=== PATIENT | female | born 1970 | race Two or more races ===

== ENCOUNTER 2020-05-05 19:57 | Emergency (ER) | payer OTHER, SELFPAY ==
--- NOTE | ~2020-05-05 | CT_ITS ---
EXAMINATION: CTA chest PE protocol DATE: 05/05/2020 21:05 INDICATION: Chest pain and shortness of breath TECHNIQUE: Computed tomography angiography (CTA) of the chest was performed with 100 mL Omnipaque-350 intravenous contrast timed to evaluate the pulmonary arteries. Coronal maximum intensity projection 3D-reconstructions were created by the technologist. Automated exposure control and iterative reconst ruction technique were employed. Exam dose: 844.66 mGy-cm total exam DLP. COMPARISON: 07/19/2019 CT pulmonary scan FINDINGS: There is diagnostic contrast enhancement of the pulmonary arteries and no evidence of pulmo nary embolism. There is minimal focal patchy groundglass infiltrate in the anteromedial left upper lobe and minimal discoid atelectasis at the lingula and base of the right lower lobe. No pulmonary mass lesion is evident. No hilar or mediastinal mass lesion or lymphadenopathy. No thoracic aortic aneurysm or dissection. Normal heart size. No pericardial or pleural effusion. Status post cholecystectomy Anterior fusion at T10-11 vertebral bodies. IMPRESSION: No evidence of pulmonary embolism Minimal focal infiltrate in the anteromedial left upper lobe Minimal discoid atelectasis or scarring at the lingula and base of the right lower lobe Reviewed, dictated and finalized at [facility]. Reviewed, dictated and finalized at [facility]. IVING DOCK CHECKER IMPRESSION: No evidence of pulmonary embolism Minimal focal infiltrate in the anteromedial left upper lobe Minimal discoid atelectasis or scarring at the lingula and base of the right lo wer lobe
[2020-05-05 20:02] VITALS: BP 163/99; PULSE 90; RESP 18; TEMP 36.6; O2SAT 96
--- NOTE | 2020-05-05 20:21 | ECG_ITS ---
Measurements Intervals [place] Rate: 90 P: 50 OK: 168 QRS: -26 QRSD: 73 T: 23 QT: 357 QTc: 437 Interpretive Statements SINUS RHYTHM FREQUENT ATRIAL PREMATURE COMPLEXES LOW QRS VOLTAGE IN PRECORDIAL LEADS BASELINE ARTIFACT- I, II, AVR, AVF ABNORMAL ECG Electronically Signed On 05-06-2020 7:38:38 OFFICE HELPER by Dioni Watts D.O.
[2020-05-05 20:36] LABS: Basophils Absolute Auto 0.1 K/mm3 (0.0-0.1); Basophils Percent Auto 0.8 % (0.2-1.2); Eosinophils Absolute Auto 0.2 K/mm3 (0-0.3); Eosinophils Percent Auto 1.8 % (0-4.4); Immature Granulocyte Absolute 0.02 K/mm3 (0.00-0.031); Immature Granulocyte Percent A 0.2 % (0-0.5); Lymphocytes Absolute Auto 3.85 K/mm3 (0.9-3.2); Lymphocytes Percent Auto 38.8 % (18.3-44.2); Mean Corpuscular HGB Conc 34.1 g/dl (32-36); Mean Corpuscular Hemoglobin 30.6 pg (26-34); Mean Corpuscular Volume 89.5 fl (80-100); Mean Platelet Volume 10.3 fl (7.4-10.4); Monocytes Absolute Auto 0.8 K/mm3 (0.1-0.6); Monocytes Percent Auto 8.5 % (2.6-8.5); Neutrophils Percent Auto 49.9 % (45.5-73.1); Platelet Count Result 266 k/mm3 (150-375); Red Blood Count 4.58 M/mm3 (4.2-5.4); Red Cell Distribution Width 13.1 % (11.5-14.5); White Blood Count 9.9 K/mm3 (4.5-10.0)
[2020-05-05 20:46] LABS: INR 1.1; Prothrombin Time 15.1 Seconds (11.1-14.7)
[2020-05-05 20:47] LABS: Partial Thromboplastin Time 38.1 SECONDS (22.3-36.8)
[2020-05-05 20:51] LABS: Anion Gap 7 mmol/L (8-16); Blood Urea Nitrogen 9 mg/dL (7-17); Carbon Dioxide 26 mmol/L (22-30); Chloride 106 mmol/L (98-107); Estimated CRCL calculation 121 ml/min; Estimated Glomerular Filt Rate > 60; Glucose 109 mg/dL (65-105); Potassium 3.6 mmol/L (3.4-5.0); Sodium 139 mmol/L (137-145)
--- NOTE | 2020-05-05 20:55 | ED.CHESTPAIN ---
HPI - Chest Pain General Chief Complaint: Chest Pain Stated Complaint: cp, sob Time Seen by Provider: 05/05/20 20:08 History of Present Illness HPI narrative: Patient is a 49-year-old female who presents the ER with chest palpitations. Intermittent over the last couple days. Associated with some sweats earlier today. Patient reports she has known coronary disease for which she takes nitroglycerin for chest pain. Her most recent cardiac catheterization was 2 months ago when she reports she was diagnosed with small vessel disease and there is nothing to stand or to do for her chest pain. She is seen by prn occupational therapist in [place]. Patient did however have a recent foot surgery on the left side the last couple weeks. Related Data Home Medications Medication Instructions Recorded Confirmed gabapentin 800 mg PO BID 07/19/19 07/19/19 nifedipine 30 mg PO DAILY 07/19/19 07/19/19 pantoprazole 40 mg PO BID 07/19/19 07/19/19 ropinirole 2 mg PO Q12H 07/19/19 07/19/19 trazodone 200 mg PO HS 07/19/19 07/19/19 Allergies Allergy/AdvReac Type Severity Reaction Status Date / Time Penicillins Allergy Unknown Verified 07/19/19 17:54 nitrofurantoin AdvReac Gastrointestinal Verified 07/19/19 17:54 [From Macrobid] Upset tramadol AdvReac Itching Verified 07/19/19 17:54 Review of Systems Review of Systems: All systems reviewed & are unremarkable except as noted in HPI and below Constitutional: Constitutional: Denies chills, Denies fever(s) and Denies weakness Comments: +sweats Cardiovascular: Cardiovascular: Reports chest pain, Reports rapid heart rate and Denies radiating jaw, neck or arm pain Comments: +palpitations Respiratory: Respiratory: Denies cough and Denies dyspnea Gastrointestinal: Gastrointestinal: Denies abdominal pain, Denies nausea and Denies vomiting [facility] Past Medical History Medical History Acute diastolic (congestive) heart failure Chronic back pain With history of spinal cord stimulator with subsequent removal. GERD (gastroesophageal reflux disease) Hypertension Psychogenic nonepileptic seizure Tobacco use Surgical History Surgical History Status post cholecystectomy Status post endometrial ablation Status post thoracic spinal fusion Status post tubal ligation Family History Family History Father Asthma Chronic obstructive pulmonary disease Diabetes mellitus Hypertension Lymphoma at age 72. Sibling Prostate carcinoma Mother Hypertension Lung cancer at age 65. Social History Social History Social History: Patient lives in [place] with her ex boyfriend I believe. She designates her daughter's as her surrogate decision makers and she wishes to be a full code. She smokes about half a pack of cigarettes per day and has for many years. She drinks alcohol socially and in moderation. She denies drug use. Smoking packs per day: 0.5 Smoking cigarettes per day: 10.0 Years smoked: 28 Smoking pack-years: 14.00 Smoking status: Current every day smoker Tobacco type: cigarettes Second hand tobacco smoke exposure: Yes Alcohol intake: current Drinks per week: 2 Substance use: never Gender identity (if verbalized by the patient): Female Spiritual care concerns: No Exam Narrative: Exam Narrative: GENERAL: Well-appearing, well-nourished, and in no acute distress. HEAD: Normocephalic, atraumatic. ENT: Mucous membranes moist. CHEST: Clear to auscultation. No respiratory distress. HEART: Regular rate and rhythm. Normal peripheral pulses. ABDOMEN: Soft, nontender, nondistended. EXTREMITIES: Normal range of motion. No edema. SKIN: Warm, dry, no rash. NEURO: Alert and oriented x3. PSYCH: Normal mood and affect. Course Course Emergency Course: CTA negative for PE, does show small focal infiltr
[2020-05-05 21:00] VITALS: BP 127/104; PULSE 90; RESP 16; O2SAT 96
[2020-05-05 21:02] LABS: Troponin I < 0.012 ng/mL (0.000-0.034)
[2020-05-05 21:40] VITALS: BP 104/55; PULSE 81; RESP 20; O2SAT 97
[2020-05-06 00:10] LABS: Troponin I < 0.012 ng/mL (0.000-0.034)
[2020-05-06 00:37] VITALS: BP 107/64; PULSE 81; RESP 16; TEMP 36.6; O2SAT 98
== END 2020-05-06 00:38 | disposition home or self-care (01) ==
PROVIDERS: Emergency Provider Emergency Medicine
DX: I49.1 Atrial premature depolarization (principal); R00.1 Bradycardia, unspecified; K21.9 Gastro-esophageal reflux disease without esophagitis; Z98.1 Arthrodesis status; J18.9 Pneumonia, unspecified organism; I25.10 Atherosclerotic heart disease of native coronary artery without angina pectoris; I73.9 Peripheral vascular disease, unspecified; I11.0 Hypertensive heart disease with heart failure; I50.31 Acute diastolic (congestive) heart failure; F17.210 Nicotine dependence, cigarettes, uncomplicated
CPT/HCPCS: 36415; 71275; 80048; 84484; 85025; 85610; 85730; 93005; 99284; Q9967

== ENCOUNTER 2024-05-10 05:55 | Emergency (ER) | payer OTHER, SELFPAY ==
--- NOTE | ~2024-05-10 | CT_ITS ---
EXAMINATION: CT abd pelvis lumbar wo con DATE: 05/10/2024 07:50 INDICATION: Kidney stone. Back pain. TECHNIQUE: Computed tomography (CT) of the abdomen and pelvis and lumbar spine was performed without intravenous contrast. Automated exposure control and iterative reconstruction technique were employed . The dose-length product was 1519.25 mGy-cm. COMPARISON: None FINDINGS: CT ABDOMEN AND PELVIS: The visualized portions of the lung bases demonstrate mild atelectasis. No ple ural effusion. The heart size is normal. No pericardial effusion. The liver is normal. There are altamirano ges of cholecystectomy. The spleen, pancreas, adrenal glands, and right kidney are normal. Left kidne y is inferior to its expected position, a normal variant. There is no urolithiasis. There are no dila gauri loops of bowel. The appendix is normal. There are no pathologically enlarged lymph nodes. There i s no free intraperitoneal fluid. CT LUMBAR SPINE: There is 6 degrees dextrocurvature of the lumbar spine. There is 3 mm anterolisthesi s of L3 on L4 and L4 on L5. There are changes of anterior fusion procedure at L5-S1 with healed inter body bone graft and anterior plate and screws. There is mildly decreased disc height at L2-L3 and sev erely decreased disc height at L3-L4 and L4-L5. The following disc levels are specifically discussed: L1-L2: The disc does not extend beyond the endplate margin. There is moderate bilateral facet joint o steoarthritis. There is no neural foraminal stenosis. There is no central canal stenosis. L2-L3: The disc is bulging. There is mild bilateral facet joint osteoarthritis. There is mild bilater al neural foraminal stenosis. There is mild central canal stenosis. L3-L4: The disc is bulging. There is severe right and moderate left facet joint osteoarthritis. There is moderate bilateral neural foraminal stenosis. There is mild central canal stenosis. There is sachin re stenosis of left lateral recess. L4-L5: The disc is bulging. There is severe right and moderate left facet joint osteoarthritis. There is moderate bilateral neural foraminal stenosis. There is moderate central canal stenosis. L5-S1: The disc does not extend beyond the endplate margin. There is no facet joint hypertrophy. Ther e is no neural foraminal stenosis. There is no central canal stenosis. IMPRESSION: 1. No urolithiasis. 2. Anterior fusion procedure at L5-S1. 3. Severe lumbar spondylosis. Reviewed, dictated and finalized at location [] SCRAPER
[2024-05-10 06:06] VITALS: BP 113/78; PULSE 71; RESP 17; TEMP 36.9; O2SAT 97
[2024-05-10 06:16] VITALS: BP 113/78; PULSE 71; RESP 17; TEMP 36.9; O2SAT 98
[2024-05-10 06:27] LABS: Basophils Absolute Auto 0.1 K/mm3 (0.0-0.1); Basophils Percent Auto 0.8 % (0.2-1.2); Eosinophils Absolute Auto 0.2 K/mm3 (0-0.3); Eosinophils Percent Auto 2.2 % (0-4.4); Hematocrit 40.5 % (37.0-47.0); Hemoglobin 13.7 g/dL (12.0-15.0); Immature Granulocyte Absolute 0.02 K/mm3 (0.00-0.031); Immature Granulocyte Percent A 0.3 % (0-0.5); Lymphocytes Absolute Auto 3.27 K/mm3 (0.9-3.2); Lymphocytes Percent Auto 42.1 % (18.3-44.2); Mean Corpuscular HGB Conc 33.8 g/dl (32-36); Mean Corpuscular Hemoglobin 30.4 pg (26-34); Mean Platelet Volume 10.7 fl (7.4-10.4); Monocytes Absolute Auto 0.7 K/mm3 (0.1-0.6); Monocytes Percent Auto 8.8 % (2.6-8.5); Neutrophils Absolute Auto 3.6 K/mm3 (1.3-6.7); Neutrophils Percent Auto 45.8 % (45.5-73.1); Platelet Count Result 238 k/mm3 (150-375); Red Cell Distribution Width 14.3 % (11.5-14.5); White Blood Count 7.8 K/mm3 (4.5-10.0)
[2024-05-10 06:50] LABS: Alanine Aminotransferase 29 U/L (6-35); Albumin Level 4.2 g/dL (3.5-5.1); Alkaline Phosphatase 81 U/L (38-126); Anion Gap 8 mmol/L (4-12); Aspartate Amino Transferase 25 U/L (14-36); Bilirubin,Total 0.3 mg/dL (0.2-1.3); Blood Urea Nitrogen 10 mg/dL (7-17); Carbon Dioxide 24 mmol/L (22-30); Chloride 109 mmol/L (98-107); Estimated CRCL calculation 119 ml/min; Estimated Glomerular Filt Rate > 60; Glucose 136 mg/dL (65-110); Potassium 3.9 mmol/L (3.4-5.0); Sodium 141 mmol/L (137-145)
--- NOTE | 2024-05-10 07:18 | ED.BACK ---
HPI - Back Pain/Injury General Chief Complaint: Back Pain/Injury Stated Complaint: My back has been hurting for three days Time Seen by Provider: 05/10/24 06:56 Source: patient and family Mode of arrival: ambulatory Limitations: no limitations History of Present Illness HPI Narrative: patient presents with report of bilateral low back pain 3 days duration. She notes that it wraps around into her groin but denies any abdominal pain. She is having difficulty urinating and a burning sensation with urination when she is able to. She has been trialing Tylenol, ibuprofen, Flexeril, icy Hot, and lidocaine patches at home without relief. She denies any fevers or chills. No prior urinary tract infection, pyelonephritis, or stones. No falls or trauma. She denies IV drug use or history of cancer or steroid use. Related Data Home Medications Medication Instructions Recorded Confirmed gabapentin 800 mg tablet 800 mg PO BID 07/19/19 07/19/19 nifedipine 30 mg tablet,extended 30 mg PO DAILY 07/19/19 07/19/19 release 24 hr pantoprazole 40 mg tablet,delayed 40 mg PO BID 07/19/19 07/19/19 release ropinirole 2 mg tablet 2 mg PO Q12H 07/19/19 07/19/19 trazodone 100 mg tablet 200 mg PO HS 07/19/19 07/19/19 Allergies Allergy/AdvReac Type Severity Reaction Status Date / Time Penicillins Allergy Unknown Verified 07/19/19 17:54 nitrofurantoin AdvReac Gastrointestinal Verified 07/19/19 17:54 [From Macrobid] Upset tramadol AdvReac Itching Verified 07/19/19 17:54 [facility] Past Medical History Medical History Acute diastolic (congestive) heart failure Chronic back pain With history of spinal cord stimulator with subsequent removal. GERD (gastroesophageal reflux disease) Hypertension Psychogenic nonepileptic seizure Tobacco use Surgical History Surgical History (Updated 05/10/24 @ 08:06 by Annamarie Beverly MD) Status post cholecystectomy Status post endometrial ablation Status post thoracic spinal fusion Status post tubal ligation Family History Family History Father Asthma Chronic obstructive pulmonary disease Diabetes mellitus Hypertension Lymphoma at age 72. Sibling Prostate carcinoma Mother Hypertension Lung cancer at age 65. Social History Social History (Updated 05/10/24 @ 07:39 by Annamarie Beverly MD) Social History: Patient lives in [place] with her ex boyfriend I believe. She designates her daughter's as her surrogate decision makers and she wishes to be a full code. She smokes about half a pack of cigarettes per day and has for many years. She drinks alcohol socially and in moderation. She denies drug use. Smoking packs per day: 0.5 Smoking cigarettes per day: 10.0 Years smoked: 28 Smoking pack-years: 14.00 Smoking status: Current every day smoker Tobacco type: cigarettes Second hand tobacco smoke exposure: Yes Alcohol intake: current Drinks per week: 2 Substance use: never Other substance usage details: denies IVDU Gender identity (if verbalized by the patient): Female Spiritual care concerns: No Exam Narrative: GENERAL: Well-appearing, well-nourished, and in no acute distress. HEAD: Normocephalic, atraumatic. EYES: Non injected, non icteric ENT: Nares clear, no rhinorrhea or epistaxis. NECK: Supple. CHEST: Speaking in full sentences. No respiratory distress. HEART: Regular rate and rhythm. . ABDOMEN: Obese but Soft, nondistended. no tenderness to palpation x4 quadrants. No rigidity or guarding. Not peritoneal. : No lesions/rash in the inguinal crease. No Inguinal lymphadenopathy. BACK: Straight leg test negative on the left and positive on the right. EXTREMITIES: sensation intact and symmetric in bilateral lower extremities. Demonstrates 5/5 strength with bilateral ankle dorsiflexion and plantar flexion. SKIN: Warm, dry, no rash. NEURO: No focal deficits. Alert and oriented x3. PSYCH: Normal mood and affect. Course Vital Signs Vital signs: Vital Signs Temperature 98.4 F 05/10/24 06:06 Pulse Rate 71 05/10/24 06:06 Respiratory Rate 17 05/10/24 06:06 Blood Pressure 113/78 05/10/24 06:06 Pulse Oximetry 97 05/10/24 06:06 Oxygen Delivery Room Air 05/10/24 06:06 Temperature 98.4 F 05/10/24 06:16 Pulse Rate 71 05/10/24 06:16 Respiratory Rate 17 05/10/24 06:16 Blood Pressure 113/78 05/10/24 06:16 Pulse Oximetry 98 05/10/24 06:16 Oxygen Delivery Room Air 05/10/24 06:06 MDM - Back Pain/Injury MDM Narrative Medical decision making narrative: Patient presents with low back pain that radiates to her groin for the past 3 days. In the emergency department they are afebrile with vital signs within normal limits. No trauma. Curvature is within normal limits. Sensation to the lower extremities is normal bilaterally. Dorsi/plantar flexion is normal bilaterally. Straight leg raise test is positive on the right. They do not have any other red flags for fracture, malignancy, infection (e.g. spinal epidural abscess), or aortic/vascular: Age, no trauma, not on chronic steroids, no cancer, no fever, IV drug use, abdominal pain. However, Given urinary symptoms and positive straight leg test, will obtain imaging at this time. EMR is reviewed and does show that patient had a history of chronic back pain since had a spinal stimulator status post removal. urinalysis unremarkable. CT imaging negative for acute process. Additional pain medications are prescribed and I did discuss with patient recommendation for multimodal pain regimen and the importance of balancing rest with stretching. She notes that she had tried taking 800 mg ibuprofen that she has with 1 tablet of 500 mg acetaminophen. I did educate her that it would be safe for her age/weight to take 1000 mg of acetaminophen. advised follow-up with primary care physician and patient was given ED return precautions. Differential Diagnosis Differential diagnosis: Likely lumbar radiculopathy, strain of lumbar region, renal colic, pyelonephritis and other (hernia) Lab Data Attestation: I reviewed the patient's lab results. Lab results narrative: hyperglycemia without anion gap acidosis. No leukocytosis. 05/10/24 06:19 05/10/24 06:19 Labs: Lab Results 05/10/24 05/10/24 05/10/24 Range/Units 06:19 08:02 08:05 WBC 7.8 (4.5-10.0) K/mm3 RBC 4.50 (4.2-5.4) M/mm3 Hgb 13.7 (12.0-15.0) g/dL Hct 40.5 (37.0-47.0) % MCV 90.0 (80-100) fl MCH 30.4 (26-34) pg MCHC 33.8 (32-36) g/dl RDW 14.3 (11.5-14.5) % Plt Count 238 (150-375) k/mm3 MPV 10.7 H (7.4-10.4) fl Immature Gran % (Auto) 0.3 (0-0.5) % Neut % (Auto) 45.8 (45.5-73.1) % Lymph % (Auto) 42.1 (18.3-44.2) % [place] % (Auto) 8.8 H (2.6-8.5) % Eos % (Auto) 2.2 (0-4.4) % Baso % (Auto) 0.8 (0.2-1.2) % Lymph # (Auto) 3.27 H (0.9-3.2) K/mm3 [place] # (Auto) 0.7 H (0.1-0.6) K/mm3 Eos # (Auto) 0.2 (0-0.3) K/mm3 Baso # (Auto) 0.1 (0.0-0.1) K/mm3 Abs Immat Gran (auto) 0.02 (0.00-0.031) K/mm3 Absolute Neuts (auto) 3.6 (1.3-6.7) K/mm3 Absolute Nucleated RBC 0.000 (0.0-0.012) K/mm3 Nucleated RBC % 0.0 (0.0-0.2) % Sodium 141 (137-145) mmol/L Potassium 3.9 (3.4-5.0) mmol/L Chloride 109 H (98-107) mmol/L Carbon Dioxide 24 (22-30) mmol/L Anion Gap 8 (4-12) mmol/L BUN 10 (7-17) mg/dL Creatinine 0.70 (0.7-1.0) mg/dL Estim Creat Clear Calc 119 ml/min Estimated GFR > 60 (59 - ) Glucose 136 H (65-110) mg/dL Calcium 9.0 (8.4-10.2) mg/dL Total Bilirubin 0.3 (0.2-1.3) mg/dL AST 25 (14-36) U/L ALT 29 (6-35) U/L Alkaline Phosphatase 81 (38-126) U/L Total Protein 7.0 (6.3-8.2) g/dL Albumin 4.2 (3.5-5.1) g/dL Urine Color Yellow (Yellow) Urine Appearance Clear (Clear) Urine pH 5.5 (5.0-9.0) Ur Specific [place] 1.023 (1.001-1.035) Urine Protein Negative (Negative) mg/dL Urine Glucose (UA) Negative (Negative) mg/dL Urine Ketones Negative (Negative) mg/dL Ur Blood (Man) Negative (Negative) Urine Nitrate Negative (Negative) Urine Bilirubin Negative (Negative) Urine Urobilinogen 1.0 (<2.0) mg/dL Leukocyte Esterase Rfl Negative (Negative) LEONA/UL POC Urine HCG, Qual Negative (Negative) Imaging Data Radiologist's impression: Impressions Miscellaneous CT Procedure 05/10/24 07:56 IMPRESSION: 1. No urolithiasis. 2. Anterior fusion procedure at L5-S1. 3. Severe lumbar spondylosis. Discharge Plan Discharge Clinical Impression: Hyperglycemia, S/P lumbar and lumbosacral fusion by anterior technique, Lumbar spondylosis Back pain Qualifiers: Back pain location: low back pain Back pain laterality: bilateral Sciatica presence: unspecified whether sciatica present Patient Disposition: Home, Self-Care Condition: Stable Instructions: Antibiotic Form, Back Pain (ED), Lower Back Exercises (ED) Additional Instructions: as we discussed, a multimodal pain regimen strategy is recommended to balance both rest with maintaining daily activities in being able to per very important stretching exercises. Acetaminophen/Tylenol (maximum 4000 mg per day, i.e. 1000mg (two 500mg tablets) every 6 hours) is safe to take with NSAIDs (ibuprofen/Motrin) for pain relief and taking them together can create a more potent effect. You already have these medications. Trial the alternative muscle relaxer prescribed and you can also alternate the lidocaine patches you have with diclofenac topical. Follow-up with your PCP. if you do not have a primary care physician, the name of the doctors listed below. Return to the ER if you have increased pain in your back, you develop lower extremity weakness/numbness/paralysis, you have numbness or tingling in your private parts, or you are unable to control your ability to urinate/stool. Prescriptions: New methocarbamol 750 mg tablet 1,500 mg PO HS Qty: 14 0RF diclofenac sodium [Aleve (diclofenac)] 1 % gel 2 g topical QID Qty: 100 0RF Rx Instructions: apply to affected area No Action nifedipine 30 mg tablet extended release 24hr 30 mg PO DAILY trazodone 100 mg tablet 200 mg PO HS ropinirole 2 mg tablet 2 mg PO Q12H gabapentin 800 mg tablet 800 mg PO BID pantoprazole 40 mg tablet,delayed release (DR/EC) 40 mg PO BID hydrochlorothiazide 25 mg tablet 25 mg PO DAILY Qty: 14 0RF azithromycin 250 mg tablet See Rx Instructions PO .COMPLEX Qty: 6 0RF Rx Instructions: take 500 mg today (day 1), then 250 mg for 4 days (days 2-5) Follow-up/Referrals: Hermes Bennett MD [Physician] - ( Family practice) UNKNOWN,DOCTOR [Primary Care Provider] - Stand Alone Forms: Work/School Release IP Time of Disposition: 08:37
[2024-05-10] MEDS: diphenhydrAMINE HCL ELIXIR 12.5 MG/5 ML UDC PO (08:00)
[2024-05-10] MEDS: HYDROcodone/acetaminophen (*CRX) 5-325 MG TABLET 1 TAB PO (08:00)
[2024-05-10 08:07] LABS: BEDSIDEPREGUCG Negative (Negative)
[2024-05-10 08:10] LABS: Add Urine Microscopic? NO; Appearance Urine Clear (Clear); Bilirubin Urine Negative (Negative); Blood Urine Negative (Negative); Color Urine Yellow (Yellow); Glucose Urine UA Negative (Negative); Ketones Urine Negative (Negative); Leukocyte Esterase Ur Negative LEU/UL (Negative); Nitrate Urine Negative (Negative); Protein Urine Negative (Negative); Specific Grav Ur 1.023 (1.001-1.035); pH Urine 5.5 (5.0-9.0)
[2024-05-10] MEDS: ACETAMINOPHEN 325 MG TABLET 650 MG PO (08:44)
[2024-05-10] MEDS: diazePAM (*CRX) 5 MG TABLET 2.5 MG PO (08:44)
[2024-05-10] MEDS: KETOROLAC 30 MG/ML VIAL (*BKC) 15 MG IM (08:45)
[2024-05-10 09:01] VITALS: BP 121/68; PULSE 61; RESP 17; TEMP 36.7; O2SAT 98
== END 2024-05-10 09:02 | disposition home or self-care (01) ==
PROVIDERS: Emergency Medicine; Emergency Provider Student in an Organized Health Care Education/Training Program
DX: M47.816 Spondylosis without myelopathy or radiculopathy, lumbar region (principal); R73.9 Hyperglycemia, unspecified; Z98.1 Arthrodesis status; I50.31 Acute diastolic (congestive) heart failure; I11.0 Hypertensive heart disease with heart failure; K21.9 Gastro-esophageal reflux disease without esophagitis; F17.210 Nicotine dependence, cigarettes, uncomplicated; Z90.49 Acquired absence of other specified parts of digestive tract
CPT/HCPCS: 36415; 72131; 74176; 80053; 81003; 81025; 85025; 96372; 99284; A9270; J1885

== ENCOUNTER 2024-05-20 23:38 | Emergency (ER) | payer OTHER, SELFPAY ==
--- NOTE | ~2024-05-20 | XR_ITS ---
EXAMINATION: XR chest 1V portable DATE: 05/21/2024 00:51 INDICATION: Chest pain. TECHNIQUE: A single frontal view of the chest was obtained. COMPARISON: Chest 2 views 07/21/2019, CT abdomen and pelvis 05/10/2024 FINDINGS: Lung volumes are small. There is no pneumonia, pleural effusion, or pneumothorax. The heart size is normal. Surgical clips in the right upper quadrant are likely from cholecystectomy. IMPRESSION: 1. Small lung volumes. Reviewed, dictated and finalized at location [facility]. N ORGANIZER IMPRESSION: 1. Small lung volumes.
[2024-05-20 23:38] VITALS: BP 153/72; PULSE 78; RESP 12; TEMP 36.7; O2SAT 98
[2024-05-20 23:51] VITALS: O2SAT 98
--- NOTE | 2024-05-20 23:53 | ECG_ITS ---
Test Date: 2024-05-20 23:58:19 Measurements Intervals [place] Rate: 84 P: 50 ID: [id number] QRS: -19 QRSD: 87 T: -16 QT: 377 QTc: 447 Interpretive Statements SINUS RHYTHM POSSIBLE LEFT ATRIAL ENLARGEMENT POSSIBLR RIGHT VENTRICULAR CONDUCTION DELAY LOW QRS VOLTAGE IN PRECORDIAL LEADS POOR R WAVE PROGRESSION BASELINE ARTIFACT- AVR, AVL, AVF, V4-V6 BORDERLINE ECG No previous ECG available for comparison Electronically Signed On 05-21-2024 06:24:03 TUB PULLER by Dioni Watts D.O.
[2024-05-21 00:01] VITALS: BP 148/74; PULSE 90; RESP 12; O2SAT 100
[2024-05-21 00:07] VITALS: PULSE 80
[2024-05-21 00:13] LABS: Glucose Point of Care 152 mg/dl (65-105)
[2024-05-21 00:27] LABS: Basophils Absolute Auto 0.1 K/mm3 (0.0-0.1); Basophils Percent Auto 0.4 % (0.2-1.2); Eosinophils Absolute Auto 0.2 K/mm3 (0-0.3); Eosinophils Percent Auto 1.5 % (0-4.4); Hematocrit 41.3 % (37.0-47.0); Immature Granulocyte Absolute 0.05 K/mm3 (0.00-0.031); Immature Granulocyte Percent A 0.4 % (0-0.5); Lymphocytes Absolute Auto 3.73 K/mm3 (0.9-3.2); Mean Corpuscular HGB Conc 33.9 g/dl (32-36); Mean Corpuscular Volume 88.4 fl (80-100); Mean Platelet Volume 10.5 fl (7.4-10.4); Monocytes Absolute Auto 0.9 K/mm3 (0.1-0.6); Neutrophils Absolute Auto 6.4 K/mm3 (1.3-6.7); Neutrophils Percent Auto 56.7 % (45.5-73.1); Platelet Count Result 237 k/mm3 (150-375); Red Blood Count 4.67 M/mm3 (4.2-5.4); White Blood Count 11.3 K/mm3 (4.5-10.0)
[2024-05-21 00:31] VITALS: BP 166/74; PULSE 88; RESP 18; O2SAT 97
[2024-05-21 00:37] LABS: Alanine Aminotransferase 33 U/L (6-35); Albumin Level 4.2 g/dL (3.5-5.1); Alkaline Phosphatase 94 U/L (38-126); Anion Gap 6 mmol/L (4-12); Aspartate Amino Transferase 34 U/L (14-36); Bilirubin,Total 0.6 mg/dL (0.2-1.3); Blood Urea Nitrogen 11 mg/dL (7-17); Calcium 8.7 mg/dL (8.4-10.2); Carbon Dioxide 25 mmol/L (22-30); Chloride 105 mmol/L (98-107); Estimated CRCL calculation 105 ml/min; Estimated Glomerular Filt Rate > 60; Glucose 140 mg/dL (65-110); Lipase 133 U/L (23-300); Potassium 3.5 mmol/L (3.4-5.0); Sodium 136 mmol/L (137-145)
[2024-05-21 00:48] LABS: INR 1.1; Prothrombin Time 14.3 Seconds (11.1-14.7)
[2024-05-21 00:49] LABS: Partial Thromboplastin Time 33.5 Seconds (22.3-36.8); Troponin I < 0.012 ng/mL (0.000-0.034)
[2024-05-21 01:00] VITALS: BP 156/73; PULSE 83; RESP 26; O2SAT 100
--- NOTE | 2024-05-21 02:07 | ED.CHESTPAIN ---
HPI - Chest Pain General Chief Complaint: Chest Pain Stated Complaint: CP Time Seen by Provider: 05/21/24 02:03 Related Data Home Medications Medication Instructions Recorded Confirmed gabapentin 800 mg tablet 800 mg PO BID 07/19/19 07/19/19 nifedipine 30 mg tablet,extended 30 mg PO DAILY 07/19/19 07/19/19 release 24 hr pantoprazole 40 mg tablet,delayed 40 mg PO BID 07/19/19 07/19/19 release ropinirole 2 mg tablet 2 mg PO Q12H 07/19/19 07/19/19 trazodone 100 mg tablet 200 mg PO HS 07/19/19 07/19/19 Allergies Allergy/AdvReac Type Severity Reaction Status Date / Time Penicillins Allergy Unknown Verified 07/19/19 17:54 nitrofurantoin AdvReac Gastrointestinal Verified 07/19/19 17:54 [From Macrobid] Upset tramadol AdvReac Itching Verified 07/19/19 17:54 PMFSH Past Medical History Medical History Acute diastolic (congestive) heart failure Chronic back pain With history of spinal cord stimulator with subsequent removal. GERD (gastroesophageal reflux disease) Hypertension Psychogenic nonepileptic seizure Tobacco use Surgical History Surgical History (Updated 05/11/24 @ 00:00 by [facility]) Status post cholecystectomy Status post endometrial ablation Status post thoracic spinal fusion Status post tubal ligation Family History Family History Father Asthma Chronic obstructive pulmonary disease Diabetes mellitus Hypertension Lymphoma at age 72. Sibling Prostate carcinoma Mother Hypertension Lung cancer at age 65. Social History Social History (Updated 05/10/24 @ 07:39 by Annamarie Beverly MD) Social History: Patient lives in [place] with her ex boyfriend I believe. She designates her daughter's as her surrogate decision makers and she wishes to be a full code. She smokes about half a pack of cigarettes per day and has for many years. She drinks alcohol socially and in moderation. She denies drug use. Smoking packs per day: 0.5 Smoking cigarettes per day: 10.0 Years smoked: 28 Smoking pack-years: 14.00 Smoking status: Current every day smoker Tobacco type: cigarettes Second hand tobacco smoke exposure: Yes Alcohol intake: current Drinks per week: 2 Substance use: never Other substance usage details: denies IVDU Gender identity (if verbalized by the patient): Female Spiritual care concerns: No Course Vital Signs Vital signs: Vital Signs Temperature 36.7 C 05/20/24 23:38 Pulse Rate 78 05/20/24 23:38 Respiratory Rate 12 05/20/24 23:38 Blood Pressure 153/72 H 05/20/24 23:38 Pulse Oximetry 98 05/20/24 23:38 Oxygen Delivery Room Air 05/20/24 23:38 Temperature 36.7 C 05/20/24 23:38 Pulse Rate 83 05/21/24 01:00 Respiratory Rate 26 H 05/21/24 01:00 Blood Pressure 156/73 H 05/21/24 01:00 Pulse Oximetry 100 05/21/24 01:00 Oxygen Delivery Room Air 05/20/24 23:51 MDM - Chest Pain Lab Data 05/21/24 00:22 05/21/24 00:22 Labs: Lab Results 05/21/24 05/21/24 Range/Units 00:11 00:22 WBC 11.3 H (4.5-10.0) K/mm3 RBC 4.67 (4.2-5.4) M/mm3 Hgb 14.0 (12.0-15.0) g/dL Hct 41.3 (37.0-47.0) % MCV 88.4 (80-100) fl MCH 30.0 (26-34) pg MCHC 33.9 (32-36) g/dl RDW 14.0 (11.5-14.5) % Plt Count 237 (150-375) k/mm3 MPV 10.5 H (7.4-10.4) fl Immature Gran % (Auto) 0.4 (0-0.5) % Neut % (Auto) 56.7 (45.5-73.1) % Lymph % (Auto) 33.0 (18.3-44.2) % [place] % (Auto) 8.0 (2.6-8.5) % Eos % (Auto) 1.5 (0-4.4) % Baso % (Auto) 0.4 (0.2-1.2) % Lymph # (Auto) 3.73 H (0.9-3.2) K/mm3 [place] # (Auto) 0.9 H (0.1-0.6) K/mm3 Eos # (Auto) 0.2 (0-0.3) K/mm3 Baso # (Auto) 0.1 (0.0-0.1) K/mm3 Abs Immat Gran (auto) 0.05 H (0.00-0.031) K/mm3 Absolute Neuts (auto) 6.4 (1.3-6.7) K/mm3 Absolute Nucleated RBC 0.000 (0.0-0.012) K/mm3 Nucleated RBC % 0.0 (0.0-0.2) % PT 14.3 (11.1-14.7) Seconds INR 1.1 APTT 33.5 (22.3-36.8) Seconds Sodium 136 L (137-145) mmol/L Potassium 3.5 (3.4-5.0) mmol/L Chloride 105 (98-107) mmol/L Carbon Dioxide 25 (22-30) mmol/L Anion Gap 6 (4-12) mmol/L BUN 11 (7-17) mg/dL Creatinine 0.80 (0.7-1.0) mg/dL Estim Creat Clear Calc 105 ml/min Estimated GFR > 60 (59 - ) Glucose 140 H (65-110) mg/dL POC Capillary Glucose 152 H (65-105) mg/dl Calcium 8.7 (8.4-10.2) mg/dL Total Bilirubin 0.6 (0.2-1.3) mg/dL AST 34 (14-36) U/L ALT 33 (6-35) U/L Alkaline Phosphatase 94 (38-126) U/L Troponin I < 0.012 (0.000-0.034) ng/mL Total Protein 8.0 (6.3-8.2) g/dL Albumin 4.2 (3.5-5.1) g/dL Lipase 133 (23-300) U/L Discharge Plan Discharge Clinical Impression: Chest pain Patient Disposition: Elopement After Seen by Prov Condition: Stable Prescriptions: No Action nifedipine 30 mg tablet extended release 24hr 30 mg PO DAILY trazodone 100 mg tablet 200 mg PO HS ropinirole 2 mg tablet 2 mg PO Q12H gabapentin 800 mg tablet 800 mg PO BID pantoprazole 40 mg tablet,delayed release (DR/EC) 40 mg PO BID hydrochlorothiazide 25 mg tablet 25 mg PO DAILY Qty: 14 0RF azithromycin 250 mg tablet See Rx Instructions PO .COMPLEX Qty: 6 0RF Rx Instructions: take 500 mg today (day 1), then 250 mg for 4 days (days 2-5) methocarbamol 750 mg tablet 1,500 mg PO HS Qty: 14 0RF diclofenac sodium [Aleve (diclofenac)] 1 % gel 2 g topical QID Qty: 100 0RF Rx Instructions: apply to affected area Follow-up/Referrals: UNKNOWN,DOCTOR [Primary Care Provider] -
--- NOTE | 2024-05-21 02:50 | PC.NURSE ---
MD Braga walked into pt room to assess her and she started yelling at Dr. Braga about not being seen and ripped out her IV in front of him and states she wants to leave. Pt eloped and started yelling and screaming in triage. ED security and storage battery charger notified.
--- NOTE | 2024-05-21 02:51 | PC.NURSE ---
Patient asked triage nurse for the number to call to report this hosptial . Patient was given patient advocate number.
== END 2024-05-21 03:00 | disposition left against medical advice (07) ==
PROVIDERS: Emergency Provider Student in an Organized Health Care Education/Training Program
DX: R07.9 Chest pain, unspecified (principal)
CPT/HCPCS: 36415; 71045; 80053; 82948; 83690; 84484; 85025; 85610; 85730; 93005; 99199